=== PATIENT | female | born 1975 | race Caucasian/White ===

== ENCOUNTER → 2019-10-17 | Outpatient (CLI) | payer BC ==
--- NOTE | 2019-10-17 12:49 | REP ---
Clinical: Left-sided rib pain on inspiration Technique: Frontal view of the chest with five views of the left hemithorax. Findings: Frontal view of the chest demonstrates no acute cardiopulmonary process. Multiple views of the left hemithorax demonstrates no obvious acute rib fracture or pathology. Impression: Normal left rib series. No obvious or displaced rib fracture identified. Electronically Signed by Rinku Chi MD 10/17/2019 12:41 P
== END ==
LOC: M LRY 12:04
PROVIDERS: ATTEND Physician Assistant
DX: R07.81 Pleurodynia (principal)

== ENCOUNTER → 2020-03-10 | Outpatient (REF) | payer MEDICAID ==
[2020-03-10 17:12] LABS: THYROID PEROXIDASE ANTIBODY < 28.0 U/ML (<60.0); TOTAL T3 97.7 NG/DL (60.0-181.0)
[2020-03-13 09:08] LABS: THRYOGLOBULIN ANTIBODIES (ATA) < 1.0 IU/mL (0.0-0.9); THYROGLOBULIN QUANTITATIVE 8.9 ng/mL (1.5-38.5)
== END ==
LOC: M LAB REF 16:32
PROVIDERS: ATTEND Physician Assistant Medical
DX: R94.6 Abnormal results of thyroid function studies (principal)

== ENCOUNTER → 2020-08-12 | Outpatient (CLI) | payer SELFPAY | LOC: M LABCAHC 16:10 | PROVIDERS: ATTEND Pediatrics | DX: Z11.59 Encounter for screening for other viral diseases (principal) ==

== ENCOUNTER → 2020-10-07 | Outpatient (CLI) | payer SELFPAY | LOC: M LABSMTC 11:07 | PROVIDERS: ATTEND Pediatrics | DX: Z20.822 Contact with and (suspected) exposure to COVID-19 (principal) ==

== ENCOUNTER → 2021-03-23 | Outpatient (REF) | payer OTHER | LOC: M LAB REF 18:53 | PROVIDERS: ATTEND Physician Assistant | DX: D23.62 Other benign neoplasm of skin of left upper limb, including shoulder (principal) ==

== ENCOUNTER → 2023-03-10 | Outpatient (CLI) | payer OTHER | LOC: M WUC 09:51 | PROVIDERS: ATTEND Physician Assistant Medical | DX: M51.36 Other intervertebral disc degeneration, lumbar region (principal); M25.511 Pain in right shoulder ==

== ENCOUNTER → 2023-06-20 | Outpatient (REF) | payer BC | LOC: M LAB REF 10:47 | PROVIDERS: ATTEND Physician Assistant Medical | DX: E03.9 Hypothyroidism, unspecified (principal) ==

== ENCOUNTER → 2024-10-25 | Outpatient (REF) | payer BC | LOC: M LAB REF 16:37 | PROVIDERS: ATTEND Physician Assistant Medical | DX: R19.4 Change in bowel habit (principal); R19.7 Diarrhea, unspecified ==

== ENCOUNTER → 2024-11-02 | Outpatient (CLI) | payer BC ==
[~2024-11-02] MED LIST: ISOVUE-370 76% 100ML VIAL ONE
== END ==
LOC: M PLAIMG 09:36
PROVIDERS: ATTEND Physician Assistant Medical
DX: R10.9 Unspecified abdominal pain (principal); K59.00 Constipation, unspecified; R91.1 Solitary pulmonary nodule
CPT/HCPCS: 74177; Q9967

== ENCOUNTER → 2024-11-27 | Outpatient (CLI) | payer BC | LOC: M PLAIMG 07:40 | PROVIDERS: ATTEND Physician Assistant Medical | DX: Z87.09 Personal history of other diseases of the respiratory system (principal) ==

== ENCOUNTER → 2024-12-10 | Outpatient (CLI) | payer BC | LOC: M RAD 15:26 | PROVIDERS: ATTEND Physician Assistant Medical | DX: D25.9 Leiomyoma of uterus, unspecified (principal) ==

== ENCOUNTER 2025-01-17 12:01 | Day surgery (SDC) | payer BC ==
[~2025-01-17] VITALS: Ht 160 cm; Wt 87.3 kg
[~2025-01-17 12:01] MED LIST changes: +ALEV220T22 PO; +ATOR1TAB19 PO; +CULT10CA4 PO; -ISOVUE-370 76% 100ML VIAL ONE; +LEVO50TA5 PO; +MULT1TAB16 PO; +PANT40TA29 PO; +VALA1TAB5 PO; +VITA-168 PO; +ZOLO100T PO
[2025-01-17] MEDS ORDERED: LIDOCAINE 2% 100MG/5ML SDV (FOR ANES.) As Ordered ONE (12:34)
[2025-01-17] MEDS ORDERED: propofoL 200 MG/20 ML VIAL As Ordered ONE (12:34)
[2025-01-17 13:52] VITALS: TEMP 97.6
[2025-01-17 14:20] VITALS: BP 140/82; O2SAT 98
== END 2025-01-17 14:23 | disposition home or self-care (01) ==
LOC: M OPP 12:01
PROVIDERS: ATTEND Surgery
DX: D12.5 Benign neoplasm of sigmoid colon (principal); K57.30 Diverticulosis of large intestine without perforation or abscess without bleeding; R19.4 Change in bowel habit; R10.84 Generalized abdominal pain; K44.9 Diaphragmatic hernia without obstruction or gangrene; K30 Functional dyspepsia; G47.9 Sleep disorder, unspecified; Z79.899 Other long term (current) drug therapy

== ENCOUNTER → 2025-03-11 | Outpatient (CLI) | payer BC | LOC: M WUC 10:21 | PROVIDERS: ATTEND Physician Assistant Medical | DX: M54.14 Radiculopathy, thoracic region (principal) ==

== ENCOUNTER → 2025-08-21 | Outpatient (REF) | payer BC ==
[2025-08-21 14:05] LABS: C REACTIVE PROTEIN QUANTITATIV < 0.50 MG/DL (<1.0)
[2025-08-21 14:11] LABS: RHEUMATOID FACTOR QUANT 4.3 IU/ML (<14)
== END ==
LOC: M LAB REF 12:15
PROVIDERS: ATTEND Physician Assistant Medical
DX: M54.9 Dorsalgia, unspecified (principal); M54.50 Low back pain, unspecified